=== PATIENT | male | born 2000 | race Caucasian/White ===

== ENCOUNTER 2022-12-30 10:25 | Emergency (ER) | payer MEDICAID ==
[~2022-12-30] VITALS: Ht 182.9 cm; Wt 70.0 kg
[2022-12-30 10:46] VITALS: BP 111/76; PULSE 94; RESP 18; TEMP 97.4; O2SAT 99
== END 2022-12-30 16:07 | disposition left against medical advice (07) ==
LOC: ER 10:26
DX: R25.1 Tremor, unspecified (principal); Z53.21 Procedure and treatment not carried out due to patient leaving prior to being seen by health care provider
CPT/HCPCS: 99281

== ENCOUNTER 2023-12-22 16:23 | Emergency (ER) | payer MEDICAID ==
[~2023-12-22] VITALS: Ht 182.9 cm; Wt 104.9 kg
[~2023-12-22 16:23] MED LIST: APIX5TAB3 PO
[2023-12-22] MEDS ORDERED: DOXY150T9 PO (19:12)
[2023-12-22 19:31] VITALS: BP 118/62; PULSE 67; RESP 18; TEMP 98.6; O2SAT 99
== END 2023-12-22 19:33 | disposition home or self-care (01) ==
LOC: ER 16:23
DX: L02.01 Cutaneous abscess of face (principal); Z79.899 Other long term (current) drug therapy
CPT/HCPCS: 99283

== ENCOUNTER 2025-01-05 14:40 | Emergency (ER) | payer MEDICAID ==
[~2025-01-05] VITALS: Ht 180.3 cm; Wt 112.3 kg
[2025-01-05 14:49] VITALS: BP 118/73; PULSE 81; RESP 18; TEMP 97.1; O2SAT 98
[2025-01-05] MEDS ORDERED: SULF1TAB49 PO (15:19)
--- NOTE | 2025-01-05 15:19 | Physician Documentation ---
History of Present Illness ~ Chief Complaint: Abscess Stated Complaint: ABSCESS Time Seen by MD: 14:52 Primary Medical Doctor: formerly [facility] HPI This is a 24-year-old male who presents with concern for an area of pain and swelling to the skin of his right posterior jaw present for the past three days which began spontaneously draining this morning. Patient reports no fever. Tetanus Within 5 Years: Yes Medication Reconciliation Allergies: Coded Allergies: No Known Allergies (Unverified , 01/05/25) Scheduled Apixaban (Eliquis), 1 TAB PO Q12H Sulfamethoxazole/Trimethoprim (Bactrim Ds Tablet), 1 TAB PO Q12H Past Medical History Past Medical History: No Pertinent History Review of Systems ROS As stated above in the HPI, otherwise all systems are reviewed and negative. Physical Exam Vital Signs: Temperature: 97.1, Source: Temporal, Heart Rate: 81, Respiratory Rate: 18, BP: 118/73, Pulse Oximetry: 98, Weight: 112.300 Physical Exam VITALS: Reviewed and as above. GENERAL: Alert, nontoxic appearing, no apparent distress. HEENT: No submandibular swelling, no elevation of the tongue to RESPIRATORY: No increased work of breathing, no respiratory distress, speaking in full clear sentences SKIN: Skin of right posterior jaw 2 cm round area of erythema with an area of spontaneous serosanguineous drainage at the center, no induration, no fluctuance Progress Results/Orders Results/Orders Vital Signs 01/05/25 14:49 Temp 97.1 Pulse 81 Resp 18 B/P (MAP) 118/73 Pulse Ox 98 Medical Decision Making Additional information obtaine: N/A Findings This 24-year-old male presented with a area of pain and swelling to skin of his right posterior jaw, physical exam was consistent with spontaneously draining uncomplicated furuncle, it is reassuring there was no evidence of deep tissue involvement and patient reports no fever. Patient is otherwise well-appearing and appropriate for outpatient follow up. Patient discharged on course of oral antibiotics and provided home care instructions, follow up instructions, and return to care precautions which he verbalized understanding of. Differential Dx:Considerations: Include: Abscess, Bacteremia, Cellulitis, Gas gangrene, Hidrademitis suppurativa, Lymphangitis, Septicemia Departure Time of Disposition: 15:18 Disposition: 01 HOME / SELF CARE / HOMELESS Impression: Primary Impression: Furuncle Condition: Improved Discharge Instructions: Abscess, Care After Additional Instructions: Use warm compresses on the area to aid in drainage. Please take the antibiotics as prescribed. You may use ibuprofen and or Tylenol as needed for pain as directed by [id number]-lls-[id number] packaging. Please follow up with your primary care provider in the next few days. Please return to the emergency department for any new or worsening concerning symptoms including but not limited to increased swelling to the area or if you develop a fever over 100.4 that does not lower with ibuprofen or Tylenol. Referrals: NO PRIMARY CARE PROVIDER (PCP) Prescriptions Sulfamethoxazole/Trimethoprim (Bactrim Ds Tablet) 800 Mg-160 Mg Tablet 1 TAB PO Q12H for 7 Days, #14 TAB Prov: TREVA VAZQUEZ 01/05/25 Education Educated: Patient Educated regarding: diagnosis, treatment, prognosis, need for follow up Signature Scribe Signature: No scribe Attestation: The note accurately reflects work and decisions made by me.DANETTE Cisneros 01/05/25 21:06 TREVA VAZQUEZ Jan 05, 2025 15:19
== END 2025-01-05 16:45 | disposition home or self-care (01) ==
LOC: ER 14:41
DX: L02.92 Furuncle, unspecified (principal)
CPT/HCPCS: 99283

== ENCOUNTER 2025-01-07 18:03 | Emergency (ER) | payer MEDICAID ==
[~2025-01-07] VITALS: Ht 180.3 cm; Wt 111.9 kg
[~2025-01-07 18:03] MED LIST changes: +SULF1TAB49 PO
[2025-01-07 18:06] VITALS: BP 129/66; PULSE 110; RESP 16; O2SAT 96
[2025-01-07] MEDS ORDERED: PENI500T2 PO (18:58)
[2025-01-07] MEDS ORDERED: IBUP-1984 PO (18:58)
--- NOTE | 2025-01-07 18:59 | Physician Documentation ---
History of Present Illness ~ Chief Complaint: Sore Throat Stated Complaint: HEADACHE/BODY PAINS Time Seen by MD: 18:18 Primary Medical Doctor: [facility] [age] YEAR MALE WHO PRESENTS TO THE EMERGENCY DEPARTMENT WITH A 24 HOUR HISTORY OF DYSPHAGIA, SORE THROAT MYALGIAS AND LOW-GRADE FEVER. NO RECENT TRAVELS NO KNOWN ILL CONTACTS OR HOSPITALIZATIONS. Medication Reconciliation Allergies: Coded Allergies: No Known Allergies (Unverified , 01/07/25) Scheduled Apixaban (Eliquis), 1 TAB PO Q12H Sulfamethoxazole/Trimethoprim (Bactrim Ds Tablet), 1 TAB PO Q12H Past Medical History Past Medical History: No Pertinent History Review of Systems All Other Systems at this time: Reviewed and Negative Constitutional: Reports: chills, fever ENT: Reports: throat pain Physical Exam Vital Signs: RN Vital Signs have been reviewed: Yes, Temperature: 98.7, Source: Oral, Heart Rate: 110, Respiratory Rate: 16, BP: 129/66, Pulse Oximetry: 96, Weight: 111.900 Oxygen Flow Rate: 0 General Appearance: alert, WD/WN, moderate distress Conjunctiva: normal inspection Pupils/EOM/Fundus: PERRLA Ear: auricle normal Mouth/Throat: tonsillar exudate, tonsillar erythema, tonsillar hypertrophy Face: normal inspection Head: normal inspection Neck: lymphadenopathy (R), lymphadenopathy (L) Respiratory: lungs clear Chest: no accessory muscle use Progress Results/Orders Results/Orders Orders - JACINDA TSANG Ketorolac Trometh 15mg/Ml Vial (Toradol (01/07/25 18:55) Penicillin V Potassium Tablet (Penicilli (01/07/25 18:55) Vital Signs 01/07/25 18:06 Temp 98.7 Pulse 110 Resp 16 B/P (MAP) 129/66 Pulse Ox 96 O2 Flow Rate 0 Medical Decision Making Additional information obtaine: N/A Findings EXAMINATION AND HISTORY CONSISTENT WITH ACUTE PHARYNGITIS WITH ETIOLOGIES SUSPECTED THAT OF BACTERIAL. NO CLINICAL SUSPICION FOR ANGIOEDEMA PERITONSILLAR ABSCESS OR SUHAS'S ANGINA. EXUDATE, LYMPHADENOPATHY DYSPHAGIA AND LOW-GRADE FEVER PRESENT. Ear Diff. Dx: Considerations: Include: Other (NONCONTRIBUTORY) Eye Diff. Dx: Considerations: Include: Other (NONCONTRIBUTORY) Nose Diff. Dx: Considerations: Include: Other (NONCONTRIBUTORY) Tooth Diff. Dx: Considerations: Include: Other (NONCONTRIBUTORY) Throat Diff Dx: Considerations: Include: Epiglottitis, Esophageal candidiasis, Herpangina, Herpetic stomatitis, Infection mononucleosis, Suhas's angina, Peritonsillar abscess, Pharyngitis-strepococcal, Pharyngitis-viral Departure Disposition: HOME / SELF CARE / HOMELESS Impression: Primary Impression: Acute pharyngitis Qualified Codes: J02.9 - Acute pharyngitis, unspecified Discharge Instructions: Pharyngitis Additional Instructions: TONIGHT IN THE EMERGENCY DEPARTMENT YOUR EXAMINATION IS CONSISTENT WITH BACTERIAL THROAT INFECTION REQUIRING ANTIBIOTICS. YOU RECEIVED AN INJECTION AND ORAL ANTIBIOTIC. OBTAIN YOUR PRESCRIPTIONS FROM THE PHARMACY AND BEGIN DIRECTED. PLEASE RETURN IF WORSE. Referrals: NO PRIMARY CARE PROVIDER (PCP) Prescriptions Ibuprofen* (Motrin*) 400 Mg Tablet 1 TAB PO Q8H for pain or fever for 10 Days, #30 TAB Prov: JACINDA TSANG 01/07/25 Penicillin V Potassium* (Penicillin VK*) 500 Mg Tablet 1 TAB PO Q12H for 10 Days, #20 TAB Prov: JACINDA TSANG 01/07/25 Education Educated: Patient Educated regarding: diagnosis, treatment, prognosis, need for follow up Signature Scribe Signature: Hal Attestation: JACINDA MURDOCK Jan 07, 2025 18:59
[2025-01-07 19:06] VITALS: TEMP 98.7
[2025-01-07] MEDS: ketorolac trometh 15mg/ml vial 15 MG/ML ML IM ONE (19:10)
[2025-01-07] MEDS: penicillin V potassium 500mg tablet PO ONE (19:10)
== END 2025-01-07 19:11 | disposition home or self-care (01) ==
LOC: ER 18:03
DX: J02.9 Acute pharyngitis, unspecified (principal); Z79.899 Other long term (current) drug therapy
CPT/HCPCS: 96372; 99283; J1885

== ENCOUNTER 2025-01-21 19:30 | Emergency (ER) | payer MEDICAID ==
[~2025-01-21] VITALS: Ht 180.3 cm; Wt 108.0 kg
[~2025-01-21 19:30] MED LIST changes: -SULF1TAB49 PO
--- NOTE | 2025-01-21 21:10 | VASCULAR REPORT ---
EXAM: VASC VL VENOUS HISTORY: Swelling, pain TECHNIQUE: Duplex Doppler evaluation of the deep venous system of the left lower extremity from the common femoral vein to the popliteal vein including color Doppler and spectral/pulsed waveform analysis was performed. COMPARISON: VASC VL VENOUS on DOS: 12/01/23 FINDINGS: The common femoral vein demonstrates appropriate compressibility and waveform variability. There is compressibility/patency of the great saphenous vein at the proximal thigh. The femoral vein demonstrates appropriate compressibility and waveform variability. The deep femoral vein demonstrates appropriate compressibility and waveform variability. The popliteal vein demonstrates appropriate compressibility and waveform variability. There is normal compressibility at the tibioperoneal trunk. Superficial thrombophlebitis seen in a venous varicosity of the left mid calf. IMPRESSION: 1. No left femoropopliteal venous thrombosis. If clinical concern/symptoms persist or worsen, short-interval follow-up study is suggested. 2. Superficial thrombophlebitis seen in a venous varicosity of the left mid calf.
[2025-01-21 22:36] VITALS: BP 103/79; PULSE 71; RESP 18; TEMP 98.2; O2SAT 99
--- NOTE | 2025-01-21 22:57 | Physician Documentation ---
History of Present Illness ~ Chief Complaint: Leg Pain Stated Complaint: LEFT LEG PAIN Time Seen by MD: 20:02 Primary Medical Doctor: [facility] HPI 24-year-old male presented with three days of left leg pain and a history of prior blood clot (VTE) last year. Patient denies area of redness warmth swelling. Patient denies fever chills nausea vomiting diarrhea at this time. No other symptoms reported at this time. Tetanus witin 5 years: Yes Medication Reconciliation Allergies: Coded Allergies: Penicillins (Verified Allergy, Severe, 01/21/25) Scheduled Apixaban (Eliquis), 1 TAB PO Q12H Discontinued Medications Ibuprofen* (Motrin*), 1 TAB PO Q8H Discontinued Reason: Auto Discontinued Penicillin V Potassium* (Penicillin VK*), 1 TAB PO Q12H Discontinued Reason: Auto Discontinued Past Medical History Past Medical History: No Pertinent History Review of Systems ROS As stated above in the HPI, otherwise all systems are reviewed and negative. Physical Exam Vital Signs: Temperature: 98.2, Heart Rate: 71, Respiratory Rate: 18, BP: 103/79, Pulse Oximetry: 99, Weight: 108.000 Physical Exam VITALS: Reviewed and as above. GENERAL: Alert, no apparent distress. HEENT: Normocephalic, atraumatic, PERRL, EOMI, dry mucosa, no erythema RESPIRATORY: Lungs clear, normal breath sounds, no respiratory distress. CHEST: No accessory muscle use, no retractions CV: Regular rate, rhythm, no edema, no murmur, No: JVD GI: Soft, non-tender, bowels sounds present, no rebound, guarding, or rigidity BACK: No CVA tenderness, or swelling MUSCULOSKELETAL No deformities, no edema SKIN: Warm and dry, no rash NEURO: Oriented x4, No motor or sensory deficit PSYCH: Normal mood and affect, no agitation Progress Results/Orders Results/Orders Orders - KAYLA LYONS FASHION STYLIST Vl Venous (01/21/25 20:02) Completed Orders - KAYLA LYONS FASHION STYLIST Vl Venous (01/21/25 20:02) Vital Signs 01/21/25 01/21/25 19:48 22:36 Temp 98.2 98.2 Pulse 83 71 Resp 16 18 B/P (MAP) 112/68 103/79 (87) Pulse Ox 98 99 Medical Decision Making Additional information obtaine: other Findings 24-year-old male presented with three days of left leg pain and a history of prior blood clot (VTE) last year. Patient requested venous duplex due to concern for recurrent thrombosis. Vascular study showed no evidence of left femoropopliteal DVT; however, superficial thrombophlebitis was identified in a venous varicosity of the left mid-calf. Assessment: No acute DVT or PE identified. Superficial thrombophlebitis in the setting of varicose vein, with localized pain and tenderness. History of prior VTE increases risk for propagation, but current imaging excludes deep vein involvement. Medical Decision-Making: Superficial thrombophlebitis is generally managed conservatively with NSAIDs for pain control and local measures (compression, ambulation) unless symptoms are severe, extensive (>5 cm), or close (<3 cm) to deep veins, or if high-risk features are present (male sex, prior VTE). Anticoagulation (fondaparinux 2.5 mg daily for 45 days, or alternatives such as rivaroxaban 10 mg daily or LMWH) may be considered if symptoms worsen, thrombus is extensive, or there is progression toward deep veins. Patient currently has localized symptoms and no evidence of extension; conservative management is appropriate at this time. Short-interval follow-up venous study is recommended if symptoms persist or worsen to monitor for extension or new DVT. Patient educated on warning signs (increased swelling, redness, dyspnea, chest pain) and instructed to seek prompt medical attention if these occur. Plan: Discharge with NSAIDs for pain control, encourage ambulation, and use of compr ession stockings as tolerated. No anticoagulation at this time; reassess if symptoms progress. Outpatient follow-up with PCP or vascular medicine within 1 week if symptoms persist or worsen. Return to ED for new or worsening symptoms suggestive of DVT or PE. General Diff Dx:Considerations: Include: Abrasion, Contusion, Fracture, Hematoma, Laceration, Malunion, Neurovascular injury, Open fracture, Sprain, Ulcer, Other Knee Diff Dx:Considerations: Include: Abrasion, Arthritis, Contusion, DJD, Fracture-femur, Fracture-fibula, Fracture-patella, Fracture-tibia, Gout, Hematoma, Laceration, Meniscus injury, Neurovascular injury, Open fracture, Rheumatoid arthritis, Septic, Sprain, Sprain-MCL, Sprain-LCL, Sprain-ACL, Sp rain-PCL, Other Ankle Diff Dx:Considerations: Include: Abrasion, Arthritis, Contusion, DJD, Fracture-metatarsal, Fracture-fibula, Fracture-tarsal, Fracture-tibia, Gout, Hematoma, Laceration, Malunion, Neurovascular injury, Nonunion, Open fracture, Osteomyelitis, Rheumatoid arthritis, Sprain, Septic, Ulcer, Other Foot Diff Dx:Considerations: Include: Abrasion, Arthritis, Cellulitis, Contusion, Dislocation, DJD, Fracture-metatarsal, Fracture-phalynx, Fracture-tarsal, Gout, Hematoma, Ingrown toenail, Laceration, Malunion, Neurovascular injury, Open fracture, Paronychia, Puncture, Rheumatoid, Sprain, Septic, Subungual hematoma, Ulcer, Other Toe Diff Dx:Considerations: Include: Abrasion, Cellulitis, Contusion, Dislocation, Felon, Fracture, Hematoma, Laceration, Neurovascular injury, Open fracture, Paronychia, Subungual hematoma, Other Departure Disposition: 01 HOME / SELF CARE / HOMELESS Impression: Primary Impression: Superficial thrombophlebitis Condition: Stable Discharge Instructions: Thrombophlebitis Additional Instructions: You were seen in the emergency department for leg pain and a history of a blood clot. Your ultrasound showed no deep blood clot in your leg, but did show a superficial blood clot (superficial thrombophlebitis) in a vein near the surface of your left calf. What to do at home: Rest and elevate your leg when possible to help reduce swelling and discomfort. Use warm compresses on the painful area to help with pain. Take [id number] pain medicine like ibuprofen (Advil, Motrin) or naproxen (Aleve) as directed, unless you have been told not to use these medicines. Wear compression stockings if recommended, as these can help with swelling and support your veins. Stay active and walk regularly, unless you are told otherwise, to help keep your blood moving. What to expect: Most people start to feel better in a few days to a week. The pain and swelling should slowly improve. The clot is in a superficial vein, which is less dangerous than a deep vein clot, but it can sometimes get worse or move to deeper veins. When to return or seek help right away: If your pain, swelling, or redness gets worse or does not improve in 7 days. If your leg becomes much more swollen, red, or painful. If you notice new swelling in your foot or thigh. If you develop sudden shortness of breath, chest pain, or coughthese could be signs of a blood clot in your lungs (pulmonary embolism). If you have fever or chills. Follow-up: You should have your leg re-checked by your doctor or clinic if your symptoms do not improve or get worse. Sometimes a repeat ultrasound is needed to make sure the clot has not grown or moved. If you have any new or concerning symptoms, return to the emergency department or call your doctor right away. If you have questions about your medicines or care, please contact your healthcare provider. Referrals: NO PRIMARY CARE PROVIDER (PCP) Education Educated: Patient Educated regarding: diagnosis, treatment, need for follow up Signature Scribe Signature: A Attestation: Scribed for Kayla Lyons by DANETTE Pardo . 01/21/25 22:57 KAYLA LYONS Jan 21, 2025 22:57
== END 2025-01-21 23:12 | disposition home or self-care (01) ==
LOC: ER 19:31
DX: I80.3 Phlebitis and thrombophlebitis of lower extremities, unspecified (principal); Z88.0 Allergy status to penicillin
CPT/HCPCS: 93971; 99284